=== PATIENT | female | born 1980 | race Two or more races ===

== ENCOUNTER 2024-05-16 06:11 | Outpatient (CLI) | payer OTHER ==
[2024-05-16 07:25] LABS: PH,URINE 6.5; URINE BILIRRUBIN SMALL (NEGATIVE); URINE BLOOD NEGATIVE; URINE GLUCOSE NEGATIVE (NEGATIVE); URINE KETONE TRACE (NEGATIVE); URINE LEUKOCYTE NEGATIVE; URINE NITRATE NEGATIVE; URINE PROTEIN NEGATIVE (NEGATIVE); URINE UROBILINOGEN 0.2 E.U./dl
[2024-05-16 07:26] LABS: URINE COLOR YELLOW
[2024-05-16 07:28] LABS: URINE BACTERIA 1439.3 uL (0.0-1933); URINE EPITHELIAL CELLS 40.9 uL (0.0-38.8); URINE RBC 6.1 uL (0.0-20.8); URINE WBC 13.1 uL (0.0-23.2)
[2024-05-16 07:32] LABS: URINE APPEARANCE CLEAR
[2024-05-16 07:45] LABS: URINE CAST 0.44 uL (0.0-1.40)
[2024-05-16 08:01] LABS: HEMATOCRIT 39.1 % (36.0-45.00); HEMOGLOBIN 13.2 g/dL (12.0-15.00); MEAN CELL VOLUME 92.4 fL (80.00-100.00); MEAN CORPUSCULAR HEMOGLOBIN 31.2 pg (27.00-32.0); MEAN CORPUSCULAR HGB CONC 33.7 g/dl (32.0-36.0); PLATELET COUNT 267 K/uL (150-450); RED BLOOD COUNT 4.23 M/uL (4.00-6.00); RED CELL DISTRIBUTION WIDTH 13.7 % (11.5-14.5)
[2024-05-16 08:54] LABS: BILIRUBIN TOTAL 0.19 mg/dL (0.3-1.2); CALCIUM 8.9 mg/dL (8.5-10.1); CHOL HDL RATIO 4.6 (0-5.0); CREATININE SERUM 0.77 mg/dL (0.55-1.02); GFR 82.21; GLOBULINA 3.7 G/DL (2.4-3.5); POTASSIUM 4.6 mEq/L (3.5-5.1); TOTAL PROTEIN 6.7 gm/dL (6.4-8.2)
[2024-05-16 10:11] LABS: VITAMIN D3 25 HYDROXY 9.1 ng/ml (30-120)
[2024-05-16 12:28] LABS: FERRITIN 17.6 NG/ML (8-252); T4 FREE 1.04 NG/ML (0.76-1.46); TSH 3.04 uIU/mL (0.358-3.74)
== END 2024-05-16 06:15 | disposition home or self-care (01) ==
LOC: LAB 06:11
DX: R82.90 Unspecified abnormal findings in urine (principal); E55.9 Vitamin D deficiency, unspecified; D51.9 Vitamin B12 deficiency anemia, unspecified; E78.2 Mixed hyperlipidemia; E03.9 Hypothyroidism, unspecified; E11.9 Type 2 diabetes mellitus without complications; N30.90 Cystitis, unspecified without hematuria; D64.9 Anemia, unspecified; E53.9 Vitamin B deficiency, unspecified; E61.1 Iron deficiency; D50.9 Iron deficiency anemia, unspecified

== ENCOUNTER 2024-05-20 07:53 | Outpatient (CLI) | payer OTHER | END 2024-05-20 07:59 | disposition home or self-care (01) | LOC: MAMO-SONO 07:53 | DX: D49.3 Neoplasm of unspecified behavior of breast (principal); D24.9 Benign neoplasm of unspecified breast ==